=== PATIENT | female | born 1935 | race Caucasian/White ===

== ENCOUNTER → 2018-09-07 | Outpatient (CLI) | payer BC | LOC: PCVCCLINIC 11:21 | PROVIDERS: ATTEND Internal Medicine | DX: I48.92 Unspecified atrial flutter (principal); N18.3 Chronic kidney disease, stage 3 (moderate); E78.5 Hyperlipidemia, unspecified; R73.01 Impaired fasting glucose; J84.9 Interstitial pulmonary disease, unspecified; R00.2 Palpitations; Z86.718 Personal history of other venous thrombosis and embolism; Z79.01 Long term (current) use of anticoagulants | CPT/HCPCS: 36415; 80061; 93005; G0463 ==

== ENCOUNTER → 2019-03-08 | Outpatient (CLI) | payer BC ==
--- NOTE | 2019-03-08 10:17 | PCVCIMAG ---
APPROVED REPORT Study performed: 03/08/2019 09:37:34 EXAM: Comprehensive 2D, Doppler, and color-flow Echocardiogram Patient Location: Echo lab Status: routine BSA: 1.57 HR: 77 bpmBP: 140/82 mmHg Rhythm: NSR Other Information Study Quality: Adequate Risk Factors: Cardiac Risk Factors: Hyperlipidemia Indications a flutter, hx DVT 2D Dimensions IVSd: 8.90 (7-11mm) LVDd: 38.05 mm PWd: 8.18 (7-11mm) LVDs: 22.46 (25-40mm) Left Atrium: 40.27 (27-40mm) Aortic Root: 31.30 mm LV Single Plane 4CH: 66.27 % LV Single Plane 2CH: 63.31 % Biplane EF: 65.2 % Volumes Left Atrial Volume (Systole) Single Plane 4CH: 43.22 mLSingle Plane 2CH: 40.09 mL LA ESV Index: 27.00 mL/m2 Aortic Valve AoV Peak Harman.: 1.44 m/s AO Peak Gr.: 8.30 mmHgLVOT Max P.75 mmHg LVOT Max V: 1.09 m/s AI Vmax: 4.33 m/s AI [place]: 3.53 m/s2 AI PHT: 358.09 ms Mitral Valve E/A Ratio: 0.82 MV Decel. Time: 234.05 ms MV E Max Harman.: 0.82 m/s MV A Harman.: 1.00 m/s IVRT: 107.27 ms Pulmonary Valve PV Peak Harman.: 0.93 m/sPV Peak Gr.: 3.45 mmHg Pulmonary Vein P Vein S: 0.34 m/sP Vein A: 0.36 m/s P Vein D: 0.55 m/sP Vein A Dur.: 124.6 msec Tricuspid Valve TR Peak Harman.: 3.35 m/s TR Peak Gr.: 44.86 mmHg TV Vmax: 0.53 m/s Left Ventricle The left ventricle is normal size. There is normal LV segmental wall motion. There is normal left ventricular wall thickness. Left ventricular systolic function is normal. The left ventricular ejection fraction is within the normal range. LVEF is 65%. Mild diastolic dysfunction is present (impaired relaxation pattern). Right Ventricle The right ventricle is normal size. The right ventricular systolic function is normal. Atria The left atrium size is normal. The right atrium size is normal. Aortic Valve Mild aortic valve sclerosis. Mild aortic regurgitation. There is no aortic valvular stenosis. Mitral Valve The mitral valve is normal in structure. There is no mitral valve regurgitation noted. No evidence of mitral valve stenosis. Tricuspid Valve The tricuspid valve is normal in structure. Mild to moderate tricuspid regurgitation with PAP of 50 mmHg. Pulmonic Valve The pulmonary valve is normal in structure. There is no pulmonic valvular regurgitation. Great Vessels The aortic root is normal in size. IVC is normal in size and collapses >50% with inspiration. Pericardium There is no pericardial effusion. There is no pleural effusion. <Conclusion> Left ventricular systolic function is normal. There is normal LV segmental wall motion. LVEF is 65%. Mild diastolic dysfunction Mild aortic valve sclerosis. Mild aortic regurgitation, no stenosis. The mitral valve is normal in structure. No mitral valve regurgitation. Mild to moderate tricuspid regurgitation with pulmonary artery pressure of 50 mmHg. There is no pericardial effusion.
== END | disposition home or self-care (01) ==
LOC: PCVCIMAG 09:05
PROVIDERS: ATTEND Internal Medicine
DX: I08.0 Rheumatic disorders of both mitral and aortic valves (principal); I48.92 Unspecified atrial flutter; E78.5 Hyperlipidemia, unspecified; Z86.718 Personal history of other venous thrombosis and embolism
CPT/HCPCS: 93306